=== PATIENT | male | born 1975 | race Two or more races ===

== ENCOUNTER 2025-04-19 01:09 | Emergency (ER) | payer OTHER ==
[~2025-04-19] VITALS: Ht 182.9 cm; Wt 90.9 kg
[2025-04-19 01:21] VITALS: TEMP 97.7
[2025-04-19] MEDS: PERTUSS(ACELL),DIPH,TET/PF 0.5 ML SYRINGE [ADULT] IM. ONE (03:19)
[2025-04-19 03:20] VITALS: BP 132/75; PULSE 77; RESP 16; O2SAT 97
== END 2025-04-19 04:07 ==
LOC: EMS 01:11
DX: S01.01XA Laceration without foreign body of scalp, initial encounter (principal); W19.XXXA Unspecified fall, initial encounter; Y93.89 Activity, other specified; Y92.89 Other specified places as the place of occurrence of the external cause; Y99.8 Other external cause status
CPT/HCPCS: 12002; 90471; 90715; 99283